=== PATIENT | female | born 2005 | race Caucasian/White ===

== ENCOUNTER 2024-06-20 13:40 | Emergency (ER) | payer MEDICAID ==
[~2024-06-20] VITALS: Ht 165.1 cm; Wt 70.0 kg
[2024-06-20 13:43] VITALS: BP 112/67; PULSE 86; RESP 16; TEMP 36.7; O2SAT 100
[2024-06-20 14:13] LABS: CLARITY URINE CLEAR (CLEAR); COLOR URINE YELLOW (YELLOW); GLUCOSE URINE NEGATIVE (NEGATIVE); KETONES URINE NEGATIVE (NEGATIVE); LEUKOCYTE ESTERASE URINE TRACE (NEGATIVE); NITRITE URINE NEGATIVE (NEGATIVE); OCCULT BLOOD URINE NEGATIVE (NEGATIVE); PROTEIN URINE NEGATIVE (NEGATIVE); SPECIFIC GRAVITY URINE 1.015 (1.005-1.030)
[2024-06-20 14:30] LABS: SQUAMOUS EPITHELIAL CELL URINE 2+ /lpf (RARE/1+)
[2024-06-20 14:31] LABS: BACTERIA URINE 1+
[2024-06-20 14:32] LABS: RBC URINE NONE SEEN /hpf (0-2); WBC URINE 0-2 /hpf (0-2)
[2024-06-20 15:20] LABS: BASOPHILS % 0.2 % (0.0-2.0); EOSINOPHILS % 1.7 % (0.0-5.0); HEMATOCRIT. 37.9 % (36.0-48.0); HEMOGLOBIN. 12.6 g/dL (12.0-16.0); LYMPHOCYTES % 22.7 % (20.0-50.0); MEAN CORPUSCULAR HEMOGLOBIN 28.8 pg (28.0-32.0); MEAN CORPUSCULAR HGB CONC 33.2 g/dL (31.0-37.0); MEAN CORPUSCULAR VOLUME 86.7 fL (81.0-99.0); MONOCYTES % 7.2 % (2.0-8.0); NEUTROPHILS % 68.2 % (40.0-76.0); PLATELET 167 x1000/uL (130-400); RED BLOOD CELL COUNT 4.37 mill/uL (4.2-5.4); RED CELL DISTRIBUTION WIDTH 14.4 % (11.6-14.6); WHITE BLOOD COUNT 8.4 x1000/uL (4.5-11.0)
[2024-06-20 15:26] LABS: CHLORIDE 110 mEq/L (98-107); POTASSIUM 4.1 mEq/L (3.5-5.1); SODIUM 139 mEq/L (136-145)
[2024-06-20 15:27] LABS: CARBON DIOXIDE 24 mEq/L (21-32)
[2024-06-20 15:28] LABS: CALCIUM 9.1 mg/dL (8.7-10.4)
[2024-06-20 15:32] LABS: CREATININE 0.6 mg/dL (0.6-1.0); GLUCOSE 78 mg/dL (70-105)
[2024-06-20 15:33] LABS: UREA NITROGEN BLOOD 8 mg/dL (9-23)
[2024-06-20 15:46] LABS: B-HCG QUANTITATIVE 27169 mIU/mL (<3)
[2024-06-20] MEDS ORDERED: TOPUD MT (16:41)
[2024-06-20] MEDS ORDERED: FAMO-135 MT (16:41)
[2024-06-20] MEDS ORDERED: NITR-87 MT (16:41)
== END 2024-06-20 16:47 | disposition home or self-care (01) ==
LOC: ER 13:40
DX: O20.0 Threatened abortion (principal); R82.71 Bacteriuria; Z3A.15 15 weeks gestation of pregnancy
CPT/HCPCS: 36415; 76805; 80048; 81003; 81025; 84702; 85025; 86850; 86900; 99284